=== PATIENT | male | born 1940 | race Caucasian/White ===

== ENCOUNTER 2024-01-01 11:02 | Day surgery (SDC) | payer OTHER, BC ==
[2024-01-01 11:22] VITALS: BMI 26.0
[2024-01-01 13:21] VITALS: TEMP 98.4
[2024-01-01 13:32] VITALS: BP 143/62; PULSE 56; RESP 20
== END 2024-01-01 12:45 | disposition home or self-care (01) ==
LOC: JASU-ENDO 11:02
PROVIDERS: ATTEND Student in an Organized Health Care Education/Training Program
PROC: 0DB78ZX Excision of Stomach, Pylorus, Via Natural or Artificial Opening Endoscopic, Diagnostic (ICD-10-PCS; 2024-01-01)
PROC: 0DB68ZX Excision of Stomach, Via Natural or Artificial Opening Endoscopic, Diagnostic (ICD-10-PCS; principal; 2024-01-01 10:45)
DX: K29.50 Unspecified chronic gastritis without bleeding (principal)
CPT/HCPCS: 88305-TC; 88342-TC